=== PATIENT | female | born 1960 | race Caucasian/White ===

== ENCOUNTER 2018-11-04 08:57 | Day surgery (SDC) | payer OTHER ==
[~2018-11-04 08:57] MED LIST: Lactated Ringers 1,000 ML IV SCH; Sodium Chloride 0.9% 10 ML SDV IV PRN; Sodium Chloride 0.9% 10 ML Syringe FLUSH PRN; Sodium Chloride 0.9% 2.5 ML Syringe FLUSH PRN
[2018-11-04] MEDS ORDERED: Propofol 200 MG/20 ML SDV ONE (09:50)
[2018-11-04] MEDS ORDERED: Midazolam 1 MG/ML 2 ML SDV ONE (09:50)
--- NOTE | 2018-11-04 09:53 | PCM.PREANE ---
Preanesthetic Assessment - Anesthesia/Transfusion/Family Hx Anesthesia History: Prior Anesthesia Without Reaction Other Type of Anesthesia Reaction Comment: Denies any problem in past Family History of Anesthesia Reaction: No Transfusion History: No Prior Transfusion(s) - Review of Systems General: No Symptoms Pulmonary: No Symptoms Cardiovascular: No Symptoms Gastrointestinal: Constipation, Other (h/o colon polyps) Neurological: No Symptoms Other: Reports: None - Physical Assessment O2 Sat by Pulse Oximetry: 98 Respiratory Rate: 16 Vital Signs: Last Vital Signs Temp 37.3 C 11/04/18 09:36 Pulse 102 H 11/04/18 09:36 Resp 16 11/04/18 09:36 BP 133/77 11/04/18 09:36 Pulse Ox 98 11/04/18 09:36 Height: 5 ft 3 in Weight: 78.925 kg ASA Class: 2 Mental Status: Alert & Oriented x3 Airway Class: Mallampati = 2 Dentition: Reports: Normal Dentition Thyro-Mental Finger Breadths: 3 Mouth Opening Finger Breadths: 3 ROM/Head Extension: Full Lungs: Clear to Auscultation, Normal Respiratory Effort Cardiovascular: Regular Rate, Regular Rhythm - Allergies Allergies/Adverse Reactions: Allergies Allergy/AdvReac Type Severity Reaction Status Date / Time erythromycin base Allergy Nausea Verified 11/03/18 10:09 morphine Allergy Disorientat Verified 11/03/18 10:09 ion Penicillins Allergy Rash Verified 11/03/18 10:09 - Blood Blood Available: No - Anesthesia Plan Pre-Op Medication Ordered: None - Acknowledgements Anesthesia Type Planned: MAC Pt an Appropriate Candidate for the Planned Anesthesia: Yes Alternatives and Risks of Anesthesia Discussed w Pt/Guardian: Yes Pt/Guardian Understands and Agrees with Anesthesia Plan: Yes PreAnesthesia Questionnaire Gastrointestinal History: Reports: Chronic Constipation, Colon Polyp Other Gastrointestinal History: Heartburn/GERD Other OB/BYN History: Per-menopausal Other Musculoskeletal History: Fractured a toe in past Neurological History: Reports: Other (See Below) Other Neuro History: hx of tremors related to B12 deficiency Psychiatric History: Reports: Depression Hematologic History: Reports: Blood Transfusion(s) Other Hematologic History: due to anemia - Past Surgical History GI Surgical History: Reports: Bariatric Procedure, Cholecystectomy, Colonoscopy (4 years ago) Female Surgical History: Reports: Endometrial Ablation - SUBSTANCE USE Smoking Status *Q: Never Smoker Recreational Drug Use History: No - HOME MEDS Home Medications: Home Meds Black Cohosh 540 mg PO DAILY 11/03/18 [History] Calcium Carbonate/Vitamin D3 [Calcium 600-Vit D3 500 Softgel] 2 cap PO DAILY 08/17 [History] [place] 500 mg PO DAILY 11/03/18 [History] Ginkgo Biloba 120 mg PO DAILY 11/03/18 [History] Ginseng 0 mg PO DAILY 11/03/18 [History] Iron 18 mg PO DAILY 11/03/18 [History] L.acidoph,Paracasei, B.lactis [Probiotic] 1 cap PO DAILY 11/03/18 [History] Lutein 20 mg PO DAILY 11/03/18 [History] Magnesium Oxide [Magnesium] 400 mg PO DAILY 11/03/18 [History] buPROPion HCl [Wellbutrin Xl] 300 mg PO DAILY 11/03/18 [History] - CURRENT (IN HOUSE) MEDS Current Meds: Current Medications Lactated Ringer's (Ringers, Lactated) 1,000 mls @ 125 mls/hr IV ASDIRECTED ANIKA Sodium Chloride (Saline Flush) 10 ml FLUSH ASDIRECTED PRN PRN Reason: Keep Vein Open Sodium Chloride (Saline Flush) 2.5 ml FLUSH ASDIRECTED PRN PRN Reason: Keep Vein Open Sodium Chloride (Saline Flush) 10 ml FLUSH ASDIRECTED PRN PRN Reason: Keep Vein Open Sodium Chloride (Saline Flush) 2.5 ml FLUSH ASDIRECTED PRN PRN Reason: Keep Vein Open Sodium Chloride (Normal Saline) 10 ml IV ASDIRECTED PRN PRN Reason: IV Use
--- NOTE | 2018-11-04 11:56 | PCM.OPNOTE ---
- General Post-Op/Procedure Note Date of Surgery/Procedure: 11/04/18 Operative Procedure(s): Screening colonoscopy Findings: Family history of colon cancer. Normal colonoscopy Pre Op Diagnosis: Family history of colon cancer Post-Op Diagnosis: normal colonoscopy Anesthesia Technique: MAC Condition: Good
--- NOTE | 2018-11-04 12:18 | PCM.POSTAN ---
POST ANESTHESIA ASSESSMENT - MENTAL STATUS Mental Status: Alert - VITAL SIGNS Pulse Rate: 72 SaO2: 99 Resp Rate: 16 Blood Pressure: 115/69 Temperature: 37.1 C - RESPIRATORY Respiratory Status: Respiratory Rate WNL - CARDIOVASCULAR CV Status: Pulse Rate WNL - GASTROINTESTINAL GI Status: No Symptoms - PAIN Pain Score: 0 - POST OP HYDRATION Hydration Status: Adequate & Stable (ready for transfer to .)
[2018-11-04] MEDS ORDERED: Acetaminophen 325 MG Tab PO ONE ×2 (12:26→14:15)
[2018-11-04] MEDS ORDERED: Acetaminophen 325 MG Tab ONE (12:30)
--- NOTE | 2018-11-04 12:35 | PCM48HPAN ---
Post Anesthesia Note - EVALUATION WITHIN 48HRS OF ANESTHETIC Vital Signs in Normal Range: Yes Patient Participated in Evaluation: Yes Respiratory Function Stable: Yes Airway Patent: Yes Cardiovascular Function Stable: Yes Hydration Status Stable: Yes Pain Control Satisfactory: Yes Nausea and Vomiting Control Satisfactory: Yes Mental Status Recovered: Yes Pulse Rate: 72 Resp Rate: 16 Temperature: 37.1 C Blood Pressure: 115/69 - COMMENTS/OBSERVATIONS Free Text/Narrative:: No anesthesia problems
--- NOTE | 2018-11-04 13:40 | OR ---
SURGEON: CHANEL ROLLINS MD DATE OF PROCEDURE: 11/04/2018 PREOPERATIVE DIAGNOSES: 1. Screening colonoscopy. 2. Family history of colon cancer. POSTOPERATIVE DIAGNOSIS: Normal colonoscopy. PRIMARY SURGEON: Endoscopist, Chanel Rollins MD. ANESTHESIA: MAC. INSTRUMENT USED: Olympus colonoscope. EXTENT OF EXAM: To the cecum. PREPARATION: Good. LIMITATIONS: None. INDICATION FOR EXAMINATION: The patient is a 58-year-old female whose mother from colon cancer in her 60s. She is due for a colonoscopy. The patient and I discussed the procedure, expected perioperative course, and risks including bleeding, infection, or damage to surrounding structures including perforation. The patient verbalized understanding and wishes to proceed. PROCEDURE IN DETAIL: The patient was brought into the endoscopy suite and placed in the left lateral decubitus position. A time-out was completed verifying the patient's name, age, date of , allergies, and procedure to be performed. Monitored anesthesia care was induced and continuous oxygen was provided via nasal cannula throughout the procedure. After adequate sedation was achieved, a digital rectal exam was performed. This exam was within normal limits. A well lubricated colonoscope was inserted into the rectum and advanced under direct visualization to the level of the cecum. The cecum was identified by both visual and anatomic landmarks. However, I was unable to retroflex the scope within the cecum due to looping of the scope more proximally. The scope was then straightened out and fully withdrawn while examining the color, texture, anatomy, and integrity of mucosa from the cecum to the anal canal. The findings were consistent with normal colonic mucosa. The scope was brought into the rectum and retroflexed to allow visualization of the anal canal opening. This appeared normal and a photograph was taken. The scope was then straightened out and fully withdrawn. The cecum to anus time was 7 minutes. The patient tolerated the procedure well and was taken to the PACU in stable condition. ENDOSCOPIC DIAGNOSIS: Normal colonoscopy. RECOMMENDATIONS: Follow up in clinic in 5 years. SIVAN KENNY /[id number]
[2018-11-04 14:02] VITALS: BP 122/64; PULSE 77
== END 2018-11-04 12:40 | disposition home or self-care (01) ==
LOC: MW.SDS 08:57
PROVIDERS: ATTEND Surgery
DX: K59.00 Constipation, unspecified (principal); I10 Essential (primary) hypertension; F32.9 Major depressive disorder, single episode, unspecified; Z88.1 Allergy status to other antibiotic agents; Z88.5 Allergy status to narcotic agent; Z88.0 Allergy status to penicillin; Z86.010 Personal history of colon polyps; Z80.0 Family history of malignant neoplasm of digestive organs; Z83.71 Family history of colonic polyps; Z79.899 Other long term (current) drug therapy
CPT/HCPCS: 45378; A9270; J2250; J2704; J7120

== ENCOUNTER 2023-11-12 10:06 | Day surgery (SDC) | payer OTHER ==
[~2023-11-12 10:06] MED LIST changes: -Lactated Ringers 1,000 ML IV SCH; -Sodium Chloride 0.9% 10 ML SDV IV PRN; +Sodium Chloride 0.9% 20 ML SDV IV PRN
[2023-11-12] MEDS: Lactated Ringers 1,000 ML IV SCH (10:45)
[2023-11-12] MEDS ORDERED: propofoL 50 ML ONE (12:27)
== END 2023-11-12 14:20 | disposition home or self-care (01) ==
LOC: MW.SDS 10:06 → MERGE 11:15 → MW.SDS 14:20
PROVIDERS: ATTEND Surgery
DX: D12.5 Benign neoplasm of sigmoid colon (principal); K20.90 Esophagitis, unspecified without bleeding; E78.00 Pure hypercholesterolemia, unspecified; I10 Essential (primary) hypertension; F32.A Depression, unspecified; K21.9 Gastro-esophageal reflux disease without esophagitis; Z79.899 Other long term (current) drug therapy; Z88.0 Allergy status to penicillin
CPT/HCPCS: 43239; 45385; J2704; J7120